=== PATIENT | male | born 1990 | race American Indian/Alaskan Native ===

== ENCOUNTER 2021-11-06 06:12 | Emergency (ER) | payer MEDICARE ==
[2021-11-06] MEDS ORDERED: dexAMETHasone 20 MG/5 ML VIAL IV ONE (07:46)
--- NOTE | 2021-11-06 07:52 | Emergency Department Report ---
ED General Adult HPI - General Chief complaint: Fever Stated complaint: MS BACK PAIN Time Seen by Provider: 11/06/21 07:41 Source: patient Mode of arrival: Stretcher Limitations: Physical Limitation - History of Present Illness Initial comments: Patient is a 31-year-old male with history of multiple sclerosis presenting with complaint of bilateral leg weakness and lower back pain beginning on Sunday. He has history of a spinal stimulator. He also reports nonproductive cough with low-grade fever. He is currently not taking any steroids. Severity scale (0 -10): 8 - Related Data Allergies Allergy/AdvReac Type Severity Reaction Status Date / Time No Known Allergies Allergy Unverified 11/06/21 07:32 ED Review of Systems ROS: Stated complaint: MS BACK PAIN Other details as noted in HPI Constitutional: fever Respiratory: cough. denies: shortness of breath, wheezing Cardiovascular: denies: chest pain, palpitations Endocrine: no symptoms reported Gastrointestinal: denies: abdominal pain, nausea, diarrhea Musculoskeletal: back pain Skin: denies: rash, lesions Neurological: weakness Psychiatric: denies: anxiety, depression ED Past Medical Hx - Past Medical History Previous Medical History?: Yes Additional medical history: MS - Surgical History Past Surgical History?: No - Social History Smoking Status: Never Smoker Substance Use Type: None ED Physical Exam - General Limitations: Physical Limitation General appearance: alert, in no apparent distress - Head Head exam: Present: atraumatic, normocephalic - Neck Neck exam: Present: normal inspection - Respiratory Respiratory exam: Present: normal lung sounds bilaterally. Absent: respiratory distress - Cardiovascular Cardiovascular Exam: Present: regular rate, normal rhythm, normal heart sounds - GI/Abdominal GI/Abdominal exam: Present: soft. Absent: distended, tenderness - Rectal Rectal exam: Present: deferred - Extremities Exam Extremities exam: Present: other (Observable weakness in both legs however he is able to raise against gravity) - Back Exam Back exam: Absent: tenderness, CVA tenderness (R), CVA tenderness (L), vertebral tenderness - Neurological Exam Neurological exam: Present: alert, oriented X3 - Psychiatric Psychiatric exam: Present: normal affect, normal mood - Skin Skin exam: Present: warm, dry, intact, normal color ED Course Vital Signs 11/06/21 11/06/21 06:14 08:40 Temperature 102 F H 98.2 F Pulse Rate 84 83 Respiratory 18 12 Rate Blood Pressure 128/81 Blood Pressure 107/60 [Left] O2 Sat by Pulse 98 97 Oximetry ED Medical Decision Making - Lab Data Result diagrams: 11/06/21 07:53 11/06/21 07:53 - Medical Decision Making Patient with MS presenting to ED with complaint of bilateral leg weakness and lower back pain. Temp 102 in triage. Patient given oral Tylenol. He was also given IV Decadron. CBC and CMP grossly unremarkable. Chest x-ray is normal. On reassessment patient states his symptoms are improved. He is stable for discharge home with return precautions. Critical care attestation.: If time is entered above; I have spent that time in minutes in the direct care of this critically ill patient, excluding procedure time. ED Disposition Clinical Impression: Multiple sclerosis exacerbation Disposition: 01 HOME / SELF CARE / HOMELESS Is pt being admited?: No Does the pt Need Aspirin: No Condition: Stable Instructions: Multiple Sclerosis Time of Disposition: 10:28
--- NOTE | 2021-11-06 08:20 | XRay Report ---
CHEST 1 VIEW INDICATION / CLINICAL INFORMATION: Cough, fever. FINDINGS: SUPPORT DEVICES: None. HEART / MEDIASTINUM: No significant abnormality. LUNGS / PLEURA: No significant pulmonary or pleural abnormality. No pneumothorax. ADDITIONAL FINDINGS: No significant additional findings. IMPRESSION: 1. No acute findings. Signer Name: Ap Adams MD Signed: 11/06/2021 8:16 AM Workstation Name: [email or web address]
[2021-11-06 08:34] LABS: Blood Urea Nitrogen 14 mg/dL (9-20); Calcium 8.6 mg/dL (8.4-10.2); Hemolysis Index 3
[2021-11-06 08:35] LABS: BUN/Creatinine Ratio 20
[2021-11-06 08:52] VITALS: BP 107/60
[2021-11-06] MEDS ORDERED: ACETAMINOPHEN 325 MG TAB PO ONE (08:59)
[2021-11-06 09:00] LABS: Basophils % (Auto) 0.3 % (0.0-1.8); Eosinophils % (Auto) 0.2 % (0.0-4.3); Hematocrit 35.9 % (35.5-45.6); Hemoglobin 11.8 gm/dl (11.8-15.2); Lymphocytes # (Auto) 0.6 K/mm3 (1.2-5.4); Lymphocytes % (Auto) 9.7 % (13.4-35.0); Mean Corpuscular HGB Conc 33 % (32-34); Mean Corpuscular Volume 89 fl (84-94); Monocytes # (Auto) 0.9 K/mm3 (0.0-0.8); Monocytes % (Auto) 14.2 % (0.0-7.3); Platelet Count 207 K/mm3 (140-440); Red Blood Count 4.03 M/mm3 (3.65-5.03); Red Cell Distribution Width 13.4 % (13.2-15.2)
== END 2021-11-06 11:00 | disposition home or self-care (01) ==
LOC: ED 06:12
DX: G35 Multiple sclerosis (principal)
CPT/HCPCS: 36415; 71045; 80048; 85025; 96374; 99284; J1100